=== PATIENT | female | born 1980 | race Caucasian/White ===

== ENCOUNTER 2025-01-26 22:56 | Emergency (ER) | payer BC, MEDICAID ==
[~2025-01-26] VITALS: Ht 165.1 cm; Wt 96.0 kg
[~2025-01-26 22:56] MED LIST: CYCL-1 PO; DICL50TA8 PO
--- NOTE | 2025-01-26 23:09 | ELECTROCARDIOGRAPH REPORT ---
[facility] Test Date: 2025-01-26 Test Time: 23:07:06 Pat Name: RAH MCFARLAND Department: EMERGENCY ROOM Room: Gender: F Digital Service Engineer: LOIDA : 1980 Requested By: ODELL ANTUNEZ Order Number: [id number] Reading MD: Measurements Intervals [employer] Rate: 124 P: 76 DC: 151 QRS: 125 QRSD: 103 T: 56 QT: 313 QTc: 450 Interpretive Statements Sinus tachycardia Right axis deviation Please click the below link to view image of tracing.
[2025-01-26 23:38] LABS: MEAN PLATELET VOLUME 9.0 FL (7.4-10.4); RED CELL DISTRIBUTION WIDTH 15.4 % (11.5-14.5)
[2025-01-26 23:54] LABS: CREATININE 0.95 MG/DL (0.40-0.90); TOTAL CARBON DIOXIDE 25.6 MMOL/L (24-32); eCRCL 69 ML/MIN; eGFR 65 ML/MIN
--- NOTE | 2025-01-27 00:27 | Physician Documentation ---
History of Present Illness ~ Chief Complaint: Abdominal Pain Stated Complaint: ABDOMINAL PAIN Time Seen by MD: 00:14 HPI Patient presents to the emergency room for evaluation of bilateral abdominal pain. Onset of symptoms since yesterday. Episodes, about once an hour. Devonte pedraza come as 03/01. She feels it may be related to gas that has unsure. Her history is complicated from previous D&C with resulting sepsis. She also has endometriosis. No fevers. Bowel movements reported to be regular and denies history of constipation. No dysuria no vomiting. She took some Tylenol approximally 6 hours ago Medication Reconciliation Allergies: Coded Allergies: No Known Allergies (Unverified , 01/26/25) Scheduled PRN Cyclobenzaprine* (Cyclobenzaprine*), 1 TABLET PO Q8H PRN for muscle spasms Diclofenac Sodium (Diclofenac Sodium), 1 TABLET PO BID PRN for pain Past Medical History Smoking Status: Never smoker Review of Systems ROS All review of systems negative except as per HPI Physical Exam Vital Signs: Temperature: 99.3, Source: Oral, Heart Rate: 138, Respiratory Rate: 16, BP: 159/88, Pulse Oximetry: 99, Weight: 96.010 Oxygen Flow Rate: 0 Physical Exam General: Patient is awake, alert, oriented x4 in no acute distress and well appearing.~ Head: Normocephalic and atraumatic. Eyes: Conjunctival normal. EOMI. PERRL. ENT: Mucous membranes moist. Neck: Supple, trachea is midline. Chest: Clear to auscultation bilaterally without rales, rhonchi, or wheezes. There is no accessory muscle use or retractions. Cardiac: RRR without murmurs, gallops, or rubs. Abd: Soft, nondistended, nontender, with normoactive bowel sounds. No guarding, rebound, or rigidity. Progress Results/Orders Results/Orders Completed Orders - SAEID YOUNG MD Urinalysis, Cult If Indicated (01/26/25 23:05) Hcg, Ur Ql (01/26/25 23:05) Cbc/Diff (01/26/25 23:05) BMP (01/26/25 23:05) Lipase (01/26/25 23:05) CMP (01/26/25 23:05) Electrocardiogram (01/26/25 ) LA (01/26/25 23:11) Procalcitonin (01/26/25 23:11) Ondansetron Disint. Tablet (Zofran Odt T (01/27/25 00:25) Potassium Bicarb 20meq Eff Tab (Effer-K (01/27/25 00:25) Dicyclomine Capsule (Bentyl Capsule) (01/27/25 00:25) Ibuprofen Tablet (Motrin Tablet) (01/27/25 00:45) Acetaminophen 325mg Tablet (Tylenol Tabl (01/27/25 00:45) Medications Received in ER Medications (Trade) Dose Ordered Sig/Felipe Route PRN Reason Start Time Stop Time Status Last Admin Dose Admin (Zofran ODT tablet) 4 mg ONCE ONCE PO 01/27/25 00:25 01/27/25 00:26 DC 01/27/25 00:49 4 MG (Effer-K 20 Meq Tablet Eff) 20 meq ONCE ONCE PO 01/27/25 00:25 01/27/25 00:26 DC 01/27/25 00:48 20 MEQ (Bentyl capsule) 20 mg ONCE ONCE PO 01/27/25 00:25 01/27/25 00:26 DC 01/27/25 00:49 20 MG (Motrin tablet) 800 mg ONCE ONCE PO 01/27/25 00:45 01/27/25 00:46 DC 01/27/25 00:49 800 MG (Tylenol tablet) 650 mg ONCE ONCE PO 01/27/25 00:45 01/27/25 00:46 DC 01/27/25 00:50 650 MG Vital Signs 01/26/25 01/27/25 22:58 01:01 Temp 99.3 Pulse 138 Resp 16 16 B/P (MAP) 159/88 Pulse Ox 99 O2 Flow Rate 0 Laboratory Tests Test 01/26/25 00:25 01/26/25 23:15 Urine Specimen Description Cln catch midstream Urine Color Yellow Urine Clarity Clear Urine pH 6.0 Urine Specific [place] 1.020 Urine Protein Negative Urine Glucose (UA) Negative Urine Ketones Negative Urine Occult Blood Negative Urine Nitrite Negative Urine Bilirubin Negative Urine Urobilinogen 1.0 Urine Leukocyte Esterase Negative Urine Culture Indicated Not ind Volume Urine Centrifuged 10 ml Urine HCG, Qualitative Negative Urine Comment White Blood Count 13.0 H Red Blood Count 4.58 Hemoglobin 12.3 Hematocrit 37.1 Mean Corpuscular Volume 81.0 Mean Corpuscular Hemoglobin 26.9 L Mean Corpuscular Hemoglobin Concent 33.3 Red Cell Distribution Width 15.4 H Platelet Count 257 Mean Platelet Volume 9.0 Neutrophils (%) (Auto) 71.5 Lymphocytes (%) (Auto) 21.1 Monocytes (%) (Auto) 6.2 Eosinophils (%) (Auto) 0.7 Basophils (%) (Auto) 0.5 Neutrophils # (Auto) 9.3 H Lymphocytes # (Auto) 2.8 Monocytes # (Auto) 0.8 Eosinophils # (Auto) 0.1 Basophils # (Auto) 0.1 CBC Comment Sodium Level 139 Potassium Level 3.0 *L Chloride Level 104 Carbon Dioxide Level 25.6 Anion Gap 9 Blood Urea Nitrogen 7 Creatinine 0.95 H Estimated GFR/1.73 m2 65 BUN/Creatinine Ratio 7.4 L Glucose Level 127 H Lactic Acid Level 1.2 Calcium Level 9.0 Total Bilirubin 1.1 H Aspartate Amino Transf (AST/SGOT) 25 Alanine Aminotransferase (ALT/SGPT) 35 Alkaline Phosphatase 99 Total Protein 8.1 Albumin 3.9 Globulin 4.2 Albumin/Globulin Ratio 0.9 L Lipase 32 Procalcitonin < 0.05 Chemistry Comments Medical Decision Making Findings Patient presented to the emergency room with bilateral abdominal pain as per HPI. Differentials include but are not limited to constipation urinary tract infection dysmenorrhea, endometriosis, intra-abdominal infection, pancreatitis therefore emergent labs ordered which were reassuring aside from low potassium which has been replenished. As patient's symptoms are bilateral I do not feel she is suffering from acute ovarian pathology or appendicitis. She appears comfortable. Unknown cause for her symptoms. Given risks and benefits of radiation exposure I feel the risks outweigh any benefits at this juncture and we are opting for conservative management with ER precautions regarding worsening of symptoms or fevers. Departure Disposition: HOME / SELF CARE / HOMELESS Impression: Primary Impression: Abdominal pain Condition: Stable Discharge Instructions: Abdominal Pain (Nonspecific) Additional Instructions: You may take both ibuprofen and Tylenol together for pain. I will provide some Bentyl for any cramping. Referrals: NO PRIMARY CARE PROVIDER (PCP) Prescriptions Dicyclomine HCl (Dicyclomine HCl) 20 Mg Tablet 1 TAB PO Q8H for irritable bowel symptoms for 10 Days, #30 TAB 0 Refills Prov: SAEID YOUNG MD 01/27/25 Education Educated: Patient Educated regarding: diagnosis, treatment, need for follow up Signature Scribe Signature: No scribe Attestation: The note accurately reflects work and decisions made by me.Saeid Young MD 01/27/25 01:23 SAEID YOUNG MD Jan 27, 2025 00:27
[2025-01-27] MEDS: POTASSIUM BICARB 20meq eff tab 20 MEQ TABLET.EFF PO ONE (00:48)
[2025-01-27] MEDS: ibuprofen tablet 400 MG TABLET PO ONE (00:49)
[2025-01-27] MEDS: ondansetron 4mg rapidly disintigrating tab PO ONE (00:49)
[2025-01-27 00:58] LABS: LEUKOCYTE ESTERASE ,URINE NEGATIVE (Neg); NITRITES, URINE NEGATIVE (Neg); OCCULT BLOOD,URINE NEGATIVE (Neg)
[2025-01-27 01:03] LABS: UA COLLECTION TYPE CLN CATCH MIDSTREAM
[2025-01-27 01:15] LABS: URINE HCG NEGATIVE (NEG)
[2025-01-27] MEDS ORDERED: DICY20TA17 PO (01:23)
[2025-01-27 01:34] VITALS: BP 100/75; PULSE 87; RESP 19; TEMP 99.3; O2SAT 100
== END 2025-01-27 01:35 | disposition home or self-care (01) ==
LOC: ER 22:57
DX: R10.9 Unspecified abdominal pain (principal)
CPT/HCPCS: 36415; 80053; 81003; 81025; 83605; 83690; 84145; 85025; 93005; 99284